=== PATIENT | male | born 1970 | race Caucasian/White ===

== ENCOUNTER 2019-09-16 20:38 | Emergency (ER) | payer OTHER, SELFPAY ==
[2019-09-16 20:53] VITALS: BP 161/95; PULSE 95; RESP 18; TEMP 37.1; O2SAT 95; BMI 38.7
--- NOTE | 2019-09-16 21:12 | XRR_ITS ---
PROCEDURE INFORMATION: Exam: XR Left Knee Exam date and time: 09/16/2019 9:40 PM Age: 49 years old Clinical indication: Injury or trauma; Injury history: Hit left knee against bumper; Initial encounter; Blunt trauma TECHNIQUE: Imaging protocol: XR Left knee. Views: 3 views. COMPARISON: No relevant prior studies available. FINDINGS: Bones/joints: No radiographic evidence of active or acute osseous pathology. No visible joint effusion radiographically. Soft tissues: Normal. XR/XR knee LT 3V* [id number] IMPRESSION: Nonacute.
--- NOTE | 2019-09-16 21:20 | ED_ITS ---
Entered by Sally Everett, acting as scribe for Alfredo De DO Sep 16, 2019 20:38 HPI - Extremity Problem General: Chief complaint: Extremity Injury, Lower Stated complaint: left knee pain Time Seen by Provider: 09/16/19 21:11 Source: patient Mode of arrival: ambulatory Limitations: no limitations History of Present Illness: HPI Narrative: 49 yo m came [place] the [place] work comp, pt hit his knee on the grill guard of the truck. MD Complaint: extremity pain, extremity swelling and other (warm to the touch) Onset (ago): day(s) (4 days ago) Pain Consistency: constant Location: left and knee Quality: sharp Radiation: none Relieving factors: nothing Exacerbating factors: nothing Associated symptoms: Reports no associated symptoms; Deny chest pain, fever(s) or rash Review of Systems General: Reports: other (negative unless marked) Const: Denies: fever or chills Eyes: Denies: change in vision or blurry vision ENMT: Denies: post nasal drip or facial/sinus pain Card: Denies: chest pain, palpitations or irregular heart rhythm Resp: Denies: shortness of breath, productive cough, non-productive cough or wheezing GI: Denies: abdominal pain, nausea or vomiting : Denies: difficulty urinating Musc: Reports: joint warmth; Denies: neck pain, back pain or redness Skin/Breast: Denies: rash, itching or redness Neuro: Denies: headache, dizziness, vertigo or confusion Psych: Denies: anxiety PFSH ED PFSH: Social History Smoking and tobacco status: never smoked Physical Exam Const: GENERAL APPEARANCE: well developed ORIENTATION/CONSCIOUSNESS: Yes oriented to person, Yes oriented to place and Yes oriented to time HENMT: COMMON NORMALS: external ears normal and external nose normal FACE & SINUS: normal facial exam NOSE: external nose normal EXTERNAL EAR: Yes e xternal ears normal MOUTH: tongue normal TEETH & GINGIVA: no abnormal tooth and associated gingiva THROAT: posterior oropharynx normal; no peritonsillar mass Eye: COMMON NORMALS: PERRL, EOMs intact bilaterally and conjunctivae normal EYELID: eyelids normal CONJUNCTIVA: Yes conjunctivae normal PUPIL: Yes PERRL Neck/C-Spine: COMMON NORMALS: full ROM GENERAL: No tracheal deviation Chest: COMMONS NORMALS: inspection of chest normal CHEST: No tenderness Resp: COMMON NORMALS: clear to auscultation bilaterally EFFORT & INSPECTION: No tachypneic, No respiratory distress, No retractions, No uses accessory muscles and No tracheal deviation AUSCULTATION: clear to auscultation bilaterally, no rhonchi, no wheezes and lung sounds not diminished Cardio: COMMON NORMALS: regular rate and regular rhythm RATE: regular rate RHYTHM: regular rhythm HEART SOUNDS: no murmurs PERIPHERAL PULSES: radi al pulses present GI: INSPECTION: No abdominal distension AUSCULTATION: No hyperactive bowel sounds and No hypoactive bowel sounds PALPATION: No guarding and No rigid PERCUSSION: no tympanic to percussion Extremity: NARRATIVE EXTREMITY EXAM: Exam the left knee shows limited flexion due to swelling and pain. Effusion is present. There is mild warmth. There is tenderness with patellar compression. Posterior drawer is lax. Anterior drawer/Lockman is normal. Varus and valgus testing are guarded. GENERAL: Yes normal exam except as noted Neuro: SENSORIUM/ORIENTATION: Yes oriented to person, Yes oriented to place and Yes oriented to time Psych: COMMON NORMALS: mental status grossly normal Skin: COMMON NORMALS: no rashes or lesions noted GENERAL SKIN EXAM: no rashes or lesions noted Course Vital Signs: Vital signs: Vital Signs Temperature 98.7 F 09/16/19 20:53 Pulse Rate 95 09/16/19 20:53 Respiratory Rate 16 09/16/19 22:48 Blood Pressure 161/95 09/16/19 20:53 Pulse Oximetry 96 09/16/19 22:48 MDM - Extremity (Nontraumatic) MDM Narrative: Medical decision making narrative: X-ray of the left knee is concerning, given a bit of a sag, for PCL injury. There is an effusion present. No definite fracture. He will be placed in a knee immobilizer, given crutches, given a prescription for a hinged knee brace to work into over the next few days, and told to follow-up with orthopedics. Discharge Plan Discharge Patient Disposition: Home, Self-Care Clinical Impression: Effusion of knee joint, left Left knee sprain Qualifiers: Encounter type: initial encounter Involved ligament of knee: posterior cruciate ligament Qualified Code(s): S83.522A - Sprain of posterior cruciate ligament of left knee, initial encounter Condition: Stable Prescriptions: [place] 7.5-325 mg tablet 1 tab PO Q6H PRN (Reason: pain) Qty: 20 RF: 0 No Action lisinopril 10 mg tablet 10 mg PO QDAY Qty: 90 RF: 2 glimepiride 2 mg Tablet 2 mg PO DAILY RF: 0 metformin 1,000 mg Tablet 1,000 mg PO BID RF: 0 Discharge Orders: Discharge Order (Routine); Ordered 09/16/19 Ordered By: Alfredo De Referrals: Wesley Fagan DO [Physician] - 4-7 days Discharge Diet: Usual diet Discharge Activity: Limit activity as instructed and Return to work/school after cleared by PCP/Specialist Patient Instructions: Knee Sprain (ED), Posterior Cruciate Ligament Injury (ED) Activity Restrictions/Additional Instructions: Crutches and knee immobilizer no more than 5 days. You may use your hinged knee brace following this. Orthopedic referral will be sent for you. If you do not hear from them by Tuesday, call the clinic and set up an appointment. Ice frequently. Discharge Date/Time: 09/16/19 23:02 Coding Level of Care Code ED Apparel Manager for g Fwd The documentation recorded by the Karlos valente Stephanie Lyn, accurately reflects the service I personally performed and the decisions made by Santino callejas Jeremy John, DO Sep 16, 2019 20:38
[2019-09-16 22:48] VITALS: RESP 16; O2SAT 96
[2019-09-16] MEDS: oxyCODONE-APAP 5-325 mg Tablet 2 TAB PO (22:48)
--- NOTE | 2019-09-17 14:25 | DCPLANNER ---
government contracts manager had message to schedule a follow up appointment for patient with ortho. government contracts manager called the ortho clinic, spoke with Pat, gave clinic patients information. government contracts manager was told that patients information would be printed and reviewed. Clinic will call registered nurse hh case manager and patient with appointment information.
--- NOTE | 2019-09-18 15:43 | DCPLANNER ---
Patient has a follow up appointment scheduled for Thursday, September 19, 2019 at 8:[address] Jj. Clinic will patient with appointment information.
--- NOTE | 2019-09-20 10:11 | DCPLANNER ---
Patient did not attend appointment scheduled for 09.19.19 with ortho.
== END 2019-09-16 23:02 | disposition home or self-care (01) ==
PROVIDERS: Emergency Provider Emergency Medicine; Family Provider Family Medicine; PCP Family Medicine
DX: S83.92XA Sprain of unspecified site of left knee, initial encounter (principal); M25.462 Effusion, left knee; W22.8XXA Striking against or struck by other objects, initial encounter
CPT/HCPCS: 12345; 29530; 73562; 99281; 99283; E0114

== ENCOUNTER → 2022-02-17 14:03 | Outpatient (BNVA) | payer OTHER, SELFPAY | PROVIDERS: Family Provider Family Medicine; PCP Family Medicine; Visit Provider Clinical Nurse Specialist Adult Health | DX: I10 Essential (primary) hypertension (principal); F41.1 Generalized anxiety disorder | CPT/HCPCS: 80048; 83735 ==

== ENCOUNTER → 2022-07-13 13:41 | Outpatient (BNVA) | payer OTHER, SELFPAY | PROVIDERS: Family Provider Family Medicine; PCP Family Medicine; Visit Provider Orthopaedic Surgery | DX: M47.22 Other spondylosis with radiculopathy, cervical region (principal); M43.17 Spondylolisthesis, lumbosacral region | CPT/HCPCS: 72050; 72110 ==

== ENCOUNTER 2022-08-09 10:56 | Outpatient (CLI) | payer OTHER, SELFPAY ==
--- NOTE | 2022-08-09 11:00 | MR_ITS ---
WS: [id number] MRI CERVICAL SPINE NONCONTRAST TECHNIQUE: Sagittal T1, T2 and STIR imaging. Axial T2, gradient, and fiesta imaging. CLINICAL INFORMATION: neck pain COMPARISON: None. FINDINGS: Straightening of the normal cervical lordosis. Cord signal is normal. No high-grade central canal ori rowing. C2-C3: Normal. C3-C4: No significant disc bulging. Mild LEFT and no significant RIGHT foraminal narrowing. Mild face t arthropathy. Spinal canal is patent. C4-C5: No significant disc bulging. Mild LEFT and no significant RIGHT foraminal narrowing. Mild face t arthropathy. Spinal canal is patent. C5-C6: Mild RIGHT and no LEFT foraminal narrowing. Mild facet arthropathy. Spinal canal is patent. C6-C7: Disc osteophyte complex with endplate ridging. Mild LEFT greater than RIGHT bony foraminal ori rowing. Small LEFT foraminal protrusion encroaches on the exiting LEFT C7 nerve root. Mild facet arth ropathy. C7-T1: Disc osteophytic ridging. Mild LEFT and no significant RIGHT foraminal narrowing. Spinal canal is patent. Visualized brain stem structures: Normal. Prevertebral soft tissues: Normal. MR/MR cervical spin wo con* [id number] IMPRESSION: 1. Straightening of the normal cervical lordosis. Cord signal is normal. No hi gh-grade central canal stenosis. 2. Mild foraminal narrowing RIGHT C5-C6, LEFT greater than RIGHT C6-C7, and LE FT C7-T1. 3. Foraminal narrowing worse at LEFT C6-C7 and LEFT C7-T1. Small LEFT foramina l protrusion LEFT C6-C7 encroaches on the exiting LEFT C7 nerve root. Recommend correlation for LEFT C7 and LEFT C8 nerve root symptoms. 4. Mild facet arthropathy C4-C5, C5-C6, and C6-C7.
== END 2022-08-09 10:57 | disposition home or self-care (01) ==
PROVIDERS: PCP Family Medicine; Visit Provider Orthopaedic Surgery
DX: M47.812 Spondylosis without myelopathy or radiculopathy, cervical region; M48.02 Spinal stenosis, cervical region
CPT/HCPCS: 72141

== ENCOUNTER 2022-09-07 13:09 | Outpatient (CLI) | payer OTHER, SELFPAY ==
[2022-09-07 15:42] LABS: Basophils # 0.1 10^3/uL (0.0-0.1); Basophils % 0.5 %; Eosinophils # 0.2 10^3/uL (0.0-0.8); Eosinophils % 1.7 %; Hematocrit 47.8 % (42.0-52.0); Hemoglobin 16.1 g/dL (11.7-16.6); Lymphocytes % 30.2 %; Mean Corpuscular HGB Conc 33.7 g/dL (30.0-36.0); Mean Corpuscular Hemoglobin 28.1 pg (28.0-34.0); Mean Corpuscular Volume 83.6 fl (80-94); Mean Platelet Volume 10.8 fL (7.4-10.4); Monocytes # 0.8 10^3/uL (0.2-0.9); Monocytes % 8.3 %; Neutrophils # 5.95 10^3/uL (1.8-7.7); Neutrophils % 59.1 %; Nucleated Red Blood Cells % 0 %; Platelet Count 276 10^3/cmm (130-400); Red Blood Count 5.72 10^6/uL (4.1-5.3); Red Cell Distribution Width 14.2 % (12.1-15.1); White Blood Count 10.1 10^3/uL (4.0-10.0)
[2022-09-07 15:48] LABS: Erythrocyte Sedimentation Rate 10 mm/hr (0-10)
[2022-09-08 13:48] LABS: Anti-Double Strand DNA AB <1 IU/mL; Jo-1 Antibody <1.0 NEG AI (<1.0 NEG); SM/RNP Antibodies <1.0 NEG AI (<1.0 NEG); SS-B/LA IGG <1.0 NEG AI (<1.0 NEG); Scleroderma Ab(Scl-70) Ab <1.0 NEG AI (<1.0 NEG); Ss-A/Ro Igg <1.0 NEG AI (<1.0 NEG)
[2022-09-09 15:26] LABS: Alternaria Alternata (M6) Ige 1.61 kU/L; Alternaria Class 2; Bermuda Class 4; Cat Dander Class 4; D. Farinae Class 0; Dermatophagoides Class 0/1; Dermatophagoides Farinae (D2) <0.10 kU/L; Dermatophagoides Pteronyssinus 0.11 kU/L; Dog Dander (E5) Ige 4.52 kU/L; Dog Dander Class 3; Elm (T8) Ige 1.73 kU/L; Elm Class 2; English Plantain (W9) Ige 0.67 kU/L; English Plantain Class 1; House Dust (Greer) (H1) Ige 5.39 kU/L; House Dust (Hollister- Stier) 2.93 kU/L; House Dust Class 2; House Dust Class 3; Immunoglobulin E 1146 kU/L (<OR=114); Johnson Grass Cl 4; June Grass Class 5; Lamb'S Quarters (Goose Foot) 1.21 kU/L; Lamb'S Quarters Class 2; Maple (Box Elder) (T1) Ige 0.29 kU/L; Maple Class 0/1; Meadow Fescue Class 5; Mucor Racemosus Class 0; Oak (T7) Ige 0.27 kU/L; Oak Class 0/1; Penicillium Class 0; Penicillium Notatum (M1) Ige <0.10 kU/L; Perennial Rye Grass Class 5; Ragweeed Class 4; Rough Marsh Elder (W16) Ige 0.69 kU/L; Rough Marsh Elder Class 1; Sweet Vernal Class 4; Timothy Grass Class 5
[2022-09-10 20:16] LABS: Aspergillus Fumigatus, Igg Ab, 40.6 mg/L (<=102)
[2022-09-15 14:14] LABS: Cyclic Citrullinated Peptide <16 UNITS
== END 2022-09-07 13:10 | disposition home or self-care (01) ==
PROVIDERS: PCP Family Medicine; Visit Provider Internal Medicine Pulmonary Disease
DX: M25.641 Stiffness of right hand, not elsewhere classified (principal); M25.642 Stiffness of left hand, not elsewhere classified; R06.02 Shortness of breath; J84.9 Interstitial pulmonary disease, unspecified; Z79.899 Other long term (current) drug therapy
CPT/HCPCS: 36415; 82785; 85025; 85651; 86003; 86140; 86200; 86225; 86235

== ENCOUNTER 2022-09-14 07:22 | Outpatient (CLI) | payer OTHER, SELFPAY ==
[2022-09-14 07:35] VITALS: BP 133/88
[2022-09-14] MEDS: albuterol 2.5 mg/3 mL Neb INHALATION (07:49)
[2022-09-14 07:54] VITALS: PULSE 97; RESP 18; O2SAT 97
[2022-09-14 07:59] VITALS: PULSE 101
== END 2022-09-14 07:23 | disposition home or self-care (01) ==
LOC: RT 07:24
PROVIDERS: PCP Family Medicine; Visit Provider Internal Medicine Pulmonary Disease
DX: G47.33 Obstructive sleep apnea (adult) (pediatric) (principal); G47.26 Circadian rhythm sleep disorder, shift work type; R06.02 Shortness of breath
CPT/HCPCS: 94060; 94618; 94726; 94729; J7613

== ENCOUNTER → 2023-05-19 13:22 | Outpatient (BNVA) | payer OTHER, SELFPAY | PROVIDERS: PCP Internal Medicine; Visit Provider Physician Assistant | DX: M79.645 Pain in left finger(s) (principal) | CPT/HCPCS: 73120 ==

== ENCOUNTER → 2023-06-22 13:55 | Outpatient (BNVA) | payer OTHER, SELFPAY | PROVIDERS: PCP Internal Medicine; Visit Provider Specialist | DX: G62.9 Polyneuropathy, unspecified; Z79.899 Other long term (current) drug therapy | CPT/HCPCS: 36415; 82607; 82746; 83921; 84443; 85651; 86140; 86334; 86431 ==

== ENCOUNTER 2023-12-21 16:36 | Outpatient (CLI) | payer OTHER, SELFPAY ==
--- NOTE | 2023-12-21 16:45 | MR_ITS ---
WS: [id number] MRI LUMBAR SPINE NONCONTRAST HISTORY: Low back pain, LEFT leg numbness. Drop foot. COMPARISON: Lumbar spine radiograph 07/13/2022 TECHNIQUE: Sagittal and axial multisequence imaging is submitted. Mild curvature of the cervical and thoracic spines. Very slight straightening of the normal lumbar lordosis. Less than 2 mm anterolisthesis of L4. No acu te fractures or marrow edema. Disc spaces are well-maintained. There is disc desiccation at L4-5 and L5-S1. Conus terminates normally at L1-2 disc level. L1-L2: Normal. L2-L3: Very minimal facet arthritis. No stenosis. L3-L4: Mild annular disc bulging with facet and ligamentum flavum hypertrophy. Very mild disc encroac hment into the foramina, RIGHT greater than LEFT. Disc also encroaches upon the subarticular recesses . No high-grade stenosis. L4-L5: Mild annular disc bulging with moderate ligamentum flavum and facet arthritis. Disc encroaches upon the ventral thecal sac contacting the traversing L5 nerve roots. Moderate bilateral foraminal s tenosis encroaching also upon the exiting L4 nerve roots. Mild central stenosis with moderate bilater al subarticular recess and foraminal encroachment. L5-S1: Mild annular disc bulge with osteophytic ridging. Focal small disc protrusion contacting the R IGHT S1 nerve root. There is additional disc contact on the LEFT S1 nerve root also to a lesser exten t. Fluid in the facet joints. Mild bilateral foraminal stenosis. Paravertebral soft tissues are negative. MR/MR lumbar spine wo con* [id number] IMPRESSION: 1. No acute lumbar spine fracture. 2. L4-5: Disc bulging contacts the traversing L5 nerve roots in the subarticul ar recesses. Moderate bilateral foraminal stenosis also encroaching upon the ex iting L4 nerve roots. Mild central stenosis. 3. L5-S1: Annular disc bulge with osteophytic ridging. Focal small disc protru teri contacting the RIGHT S1 nerve root. There is additional disc contact on th e LEFT S1 nerve root to a lesser extent. Mild foraminal stenosis. 4. L3-4: Bilateral mild foraminal stenosis, RIGHT greater than LEFT. There is mild disc encroachment upon the traversing L4 nerve roots.
== END 2023-12-21 16:37 | disposition home or self-care (01) ==
LOC: RAD 16:36
PROVIDERS: PCP Internal Medicine; Visit Provider Orthopaedic Surgery
DX: M43.9 Deforming dorsopathy, unspecified (principal); M51.36 Other intervertebral disc degeneration, lumbar region; M47.816 Spondylosis without myelopathy or radiculopathy, lumbar region; M48.061 Spinal stenosis, lumbar region without neurogenic claudication; M51.37 Other intervertebral disc degeneration, lumbosacral region; M51.27 Other intervertebral disc displacement, lumbosacral region; M48.07 Spinal stenosis, lumbosacral region
CPT/HCPCS: 72148

== ENCOUNTER → 2024-08-13 08:21 | Outpatient (BNVA) | payer OTHER, SELFPAY | PROVIDERS: PCP Family Medicine; Visit Provider Nurse Practitioner | DX: S52.122A Displaced fracture of head of left radius, initial encounter for closed fracture (principal); M19.022 Primary osteoarthritis, left elbow; G89.29 Other chronic pain; M25.422 Effusion, left elbow; X58.XXXA Exposure to other specified factors, initial encounter | CPT/HCPCS: 73080 ==